=== PATIENT | female | born 1995 | race African-American/Black ===

== ENCOUNTER 2018-12-06 09:35 | Emergency (ER) | payer SELFPAY ==
[~2018-12-06] VITALS: Ht 167.6 cm; Wt 50.0 kg
[2018-12-06 09:56] VITALS: BP 125/84
[2018-12-06] MEDS ORDERED: PREDNISONE 20MG TABLET PO ONE (10:15)
[2018-12-06] MEDS ORDERED: DIPHENHYDRAMINE 25MG CAPSULE PO ONE (10:15)
[2018-12-06] MEDS ORDERED: FAMOTIDINE 20MG TABLET PO ONE (10:15)
== END 2018-12-06 11:19 | disposition home or self-care (01) ==
LOC: ER 09:35
DX: T49.0X1A Poisoning by local antifungal, anti-infective and anti-inflammatory drugs, accidental (unintentional), initial encounter (principal); L50.9 Urticaria, unspecified; F41.9 Anxiety disorder, unspecified; Y92.89 Other specified places as the place of occurrence of the external cause
CPT/HCPCS: 82962; 99283